=== PATIENT | male | born 1960 | race Caucasian/White ===

== ENCOUNTER 2019-05-02 17:05 | Emergency (ER) | payer MEDICARE, MEDICAID ==
[~2019-05-02] VITALS: Ht 182.9 cm; Wt 93.9 kg
--- NOTE | 2019-05-02 17:22 | NUR ---
BIBRA FROM HOME FOR ABD PAIN X 4 HRS. STATES PAIN IS SHARP AND 10/10. ALSO C/O RIGHT-SIDED BODY PAIN, INCLUDING ARM AND LEG. 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 AOX4, VSS, RR EVEN AND UNLABORED ON RA. NO ACUTE DISTRESS NOTED. READY FOR EVAL.
[2019-05-02] MEDS ORDERED: ONDANSETRON HCL/PF 4 MG/2 ML VIAL IVP ONE (17:30)
[2019-05-02] MEDS ORDERED: IV NS 0.9% 1,000 ML BAG IV ONE (17:30)
[2019-05-02] MEDS ORDERED: HYDROMORPHONE INJ 2 MG/ML DISP.SYRIN IV ONE (17:30)
[2019-05-02] MEDS ORDERED: HYDROMORPHONE 1 MG/1 ML DISP.SYRIN ONE (17:34)
[2019-05-02] MEDS ORDERED: ONDANSETRON HCL/PF 4 MG/2 ML VIAL ONE (17:34)
[2019-05-02 17:45] LABS: BASOPHILS % (AUTO) 0.5 % (0.0-2.0); EOSINOPHILS % (AUTO) 1.3 % (0.0-6.0); HEMATOCRIT 49 % (39-51); HEMOGLOBIN 16.4 g/dL (13.5-17.5); LYMPHOCYTES # (AUTO) 1.9 /CMM (0.8-4.8); LYMPHOCYTES % (AUTO) 34.9 % (20.0-44.0); MEAN CORPUSCULAR HGB CONC 34 g/dl (31.0-36.0); MEAN CORPUSCULAR VOLUME 94 fL (80-96); MONOCYTES % (AUTO) 17.2 % (2.0-12.0); NEUTROPHILS # (AUTO) 2.6 /CMM (1.8-8.9); NEUTROPHILS % (AUTO) 46.1 % (43.0-81.0); PLATELET COUNT (AUTO) 166 /CMM (150-450); RED BLOOD CELL COUNT(AUTO) 5.19 MIL/uL (4.5-6.0); WHITE BLOOD COUNT (AUTO) 5.6 K/uL (4.3-11.0)
[2019-05-02 17:58] LABS: CALCIUM, SERUM 8.8 mg/dL (8.5-10.1); POTASSIUM 4.5 mmol/L (3.5-5.1)
--- NOTE | 2019-05-02 18:00 | NUR ---
PT IS A HARD STICK, AND TUBE CARRIER NOTIFIED
[2019-05-02 18:04] LABS: ALBUMIN 3.9 g/dL (3.4-5.0); BILIRUBIN,TOTAL 0.3 mg/dL (0.2-1.0); TOTAL PROTEIN, SERUM 7.9 g/dL (6.4-8.2)
[2019-05-02] MEDS ORDERED: IOHEXOL-300 100 ML VIAL IV ONE (18:14)
[2019-05-02] MEDS ORDERED: CT SWABBABLE VALVE TRANS SET 1 EA INFUS.SET MC ONE (18:14)
--- NOTE | 2019-05-02 18:20 | NUR ---
IV ACCESS OBTAINED BY DUST OPERATOR
--- NOTE | 2019-05-02 20:21 | NUR ---
IV removed. Catheter intact and site benign. Pressure and 4x4 applied to site. No bleeding noted.Patient discharged to home in stable condition. Written and verbal after care instructions given. Patient verbalizes understanding of instruction. PT GIVEN TAXI VOUCHER AND ASSISTED TO LOBBY
[2019-05-02 20:29] VITALS: BP 115/75
== END 2019-05-02 20:15 | disposition home or self-care (01) ==
LOC: ER 17:31
DX: R10.84 Generalized abdominal pain (principal); E87.1 Hypo-osmolality and hyponatremia; H54.8 Legal blindness, as defined in USA; I10 Essential (primary) hypertension; Z85.01 Personal history of malignant neoplasm of esophagus; Z88.6 Allergy status to analgesic agent
CPT/HCPCS: 36415; 74177; 80048; 80076; 83690; 85025; 96375; 96374; 99284; J1170; J2405; J7030; Q9967

== ENCOUNTER 2022-09-20 00:45 | Inpatient (IN) | payer MEDICARE, OTHER ==
[~2022-09-20] VITALS: Ht 177.8 cm; Wt 91.7 kg
--- NOTE | 2022-09-20 00:50 | NUR ---
BIBS FOR C/O ABDOMINAL DISTENTION AND DIARRHEA X 4 DAYS. HAD HERNIA REPAIR LAST MONTH AT [facility]. PATIENT IS AAOX4, ABLE TO MAKE NEEDS KNOWN. VITALS CHECKED.
[2022-09-20] MEDS ORDERED: MORPHINE SULFATE INJ 2 MG/ML DISP.SYRIN IV ONE ×2 (01:00→06:00)
[2022-09-20] MEDS ORDERED: IV NS 0.9% 1,000 ML BAG IV ONE (01:00)
[2022-09-20] MEDS ORDERED: ONDANSETRON HCL/PF 4 MG/2 ML VIAL IV ONE (01:00)
[2022-09-20] MEDS ORDERED: MORPHINE SULFATE INJ 4 MG/ML DISP.SYRIN ONE ×2 (01:03→05:35)
[2022-09-20] MEDS ORDERED: ONDANSETRON HCL/PF 4 MG/2 ML VIAL ONE (01:03)
--- NOTE | 2022-09-20 01:16 | NUR ---
IV CANNULA G20 INSERTED ON LEFT AC. BLOOD DRAWN AND SENT TO LAB
[2022-09-20 01:51] LABS: BASOPHILS % (AUTO) 0.3 % (0.0-2.0); EOSINOPHILS % (AUTO) 1.1 % (0.0-6.0); HEMATOCRIT 51 % (39-51); HEMOGLOBIN 16.8 g/dL (13.5-17.5); LYMPHOCYTES % (AUTO) 36.4 % (20.0-44.0); MEAN CORPUSCULAR HGB CONC 33 g/dl (31.0-36.0); MEAN CORPUSCULAR VOLUME 89 fL (80-96); MONOCYTES % (AUTO) 12.6 % (2.0-12.0); NEUTROPHILS # (AUTO) 4.1 K/uL (1.8-8.9); NEUTROPHILS % (AUTO) 49.6 % (43.0-81.0); PLATELET COUNT (AUTO) 177 K/uL (150-450); RED BLOOD CELL COUNT(AUTO) 5.71 MIL/uL (4.5-6.0); WHITE BLOOD COUNT (AUTO) 8.2 K/uL (4.3-11.0)
--- NOTE | 2022-09-20 02:00 | NUR ---
BROUGHT PT TO CT DEPT
[2022-09-20 02:17] LABS: CREATININE 1.4 mg/dL (0.6-1.3)
--- NOTE | 2022-09-20 02:30 | NUR ---
IV CANNULA INFILTRATED. INSERTED G20 IV CATH TO RIGHT FA. IVF HOOKED. LINE IS PATENT.
--- NOTE | 2022-09-20 02:30 | NUR ---
Note hodan in EDM - 09/20/22 at 0523 by MARTY IV CANNULA INFILTRATED. INSERTED G20 INSERTED IV CATH TO RIGHT FA. IVF HOOKED. LINE IS PATENT.
[2022-09-20] MEDS ORDERED: PIPERACILLIN /TAZOBACTAM 3.375 G VIAL IV ONE (03:29)
[2022-09-20] MEDS ORDERED: VANCOMYCIN 1 GM in IV D5W 250 ML IV ONE (03:30)
[2022-09-20] MEDS ORDERED: PIPERACILLIN /TAZOBACTAM 3.375 G in IV D5W 50 ML IV ONE (03:30)
--- NOTE | 2022-09-20 03:43 | NUR ---
[facility] CALLED FOR TRANSFER REQUEST. FAC[employer]HEET AND CLINICALS FAXED.
[2022-09-20] MEDS ORDERED: VANCOMYCIN 1 GM VIAL ONE (04:02)
--- NOTE | 2022-09-20 04:05 | NUR ---
COVID SWAB DONE AND SENT TO LAB
--- NOTE | 2022-09-20 05:39 | NUR ---
PATIENT COMPLAINING OF ABDOMINAL PAIN SCALE OF 10/10. DR GUZMAN MADE AWARE WITH ORDERS TO BE CARRIED OUT
--- NOTE | 2022-09-20 06:34 | NUR ---
PLEASE FAX COVID RESULTS TO [facility] AT [phone] AND CALL THEM AT [phone]
--- NOTE | 2022-09-20 07:37 | NUR ---
PANEL ON-CALL PAGED
[2022-09-20] MEDS ORDERED: hydrALAZINE HCL 25 MG TABLET PO ONE (10:00)
[2022-09-20] MEDS ORDERED: KETOROLAC TROMETHAMINE 15 MG/ML VIAL ONE (10:30)
[2022-09-20] MEDS ORDERED: LISI10TA29 PO (10:45)
[2022-09-20] MEDS ORDERED: ROSU10TA2 PO (10:45)
[2022-09-20] MEDS ORDERED: CARV10CP7 PO (10:45)
[2022-09-20] MEDS ORDERED: ZOLP10TA2 PO (10:45)
[2022-09-20] MEDS ORDERED: HIV PO (10:45)
[2022-09-20] MEDS ORDERED: LORA-259 PO (10:45)
[2022-09-20] MEDS ORDERED: OXYC-128 PO (10:45)
[2022-09-20] MEDS ORDERED: HYDROCODONE/APAP 5/325MG TABLET ONE (11:00)
[2022-09-20] MEDS ORDERED: HYDROCODONE/APAP 5/325MG TABLET PO ONE (11:00)
--- NOTE | 2022-09-20 11:27 | NUR ---
report given to aly espinosa
[2022-09-20] MEDS ORDERED: ACETAMINOPHEN ES 500 MG TABLET PO ONE (12:00)
--- NOTE | 2022-09-20 12:00 | NUR ---
MS JALOUSIE INSTALLER NOTES RECEIVED PATIENT VIA GURNEY FROM ER AT 1200. PATIENT IS ALERT AND ORIENTED TIMES 4. NO PAIN NOTED. NO SOB NOTED,. NO DISTRESS NOTED. ABLE TO MAKE NEEDS KNOWN IN AMHARIC LANGUAGE. ALL THE BELONGINGS ACCOUNTED AND SIGNED FOR. OVERALL SKIN INTACT. PATIENT IS LEGALLY BLIND. IV ACCESS IN THE RAC G# 20 INTACT . VITAL SIGNS IN NORMAL RANGES. ALL SAFETY MEASURES IN PLACE. BED LOCKED IN THE LOWEST POSITION. CALL LIGHT AND TABLE IN EASY REACH. WILL CONTINUE TO MONITOR CLOSELY.
--- NOTE | 2022-09-20 12:18 | NUR ---
MOVED TO INPATIENT ROOM ASSIGNED SAFELY
[2022-09-20] MEDS ORDERED: oxyCODONE/APAP (5/325 MG) 1 UDTAB TABLET PO PRN (13:30)
[2022-09-20] MEDS ORDERED: ACETAMINOPHEN 325 MG TABLET PO PRN (13:30)
[2022-09-20] MEDS ORDERED: ONDANSETRON HCL/PF 4 MG/2 ML VIAL IVP PRN (13:30)
[2022-09-20] MEDS ORDERED: Z GUARD REMEDY 4 OZ OINT TP PRN (13:30)
[2022-09-20] MEDS ORDERED: IV LR 500 ML IV ONE (13:30)
[2022-09-20] MEDS ORDERED: CARI350T PO (13:52)
[2022-09-20] MEDS ORDERED: LOPERAMIDE HCL (2 MG CAP) 2 MG CAPSULE PO PRN (14:00)
[2022-09-20] MEDS ORDERED: DICYCLOMINE HCL INJ 20 MG/2 ML AMPUL IM PRN (15:00)
[2022-09-20] MEDS: MORPHINE SULFATE INJ 4 MG/ML DISP.SYRIN IV PRN ×2 (16:26→21:18)
[2022-09-20] MEDS: LORAZEPAM 1 MG TABLET PO SCH (16:48)
[2022-09-20] MEDS: LISINOPRIL (10MG) 10 MG TABLET PO SCH (16:49)
[2022-09-20] MEDS: CARVEDILOL 3.125 MG TABLET PO SCH (16:49)
--- NOTE | 2022-09-20 19:15 | NUR ---
MS RN OPENING NOTES RECEIVED PT IS A/O X4. ON RA, TOLERATING WELL, NO S/S OF ACUTE DISTRESS, NO PAIN NOTED. ABLE TO MAKE NEEDS. IV ACCESS IN THE LHAND G# 22 INTACT S/L. VITAL SIGNS IN NORMAL RANGES. SAFETY MEASURES MAINTAINED: BED LOCKED AND IN LOWEST POSITION, SIDE RAILS UP X 3. CALL LIGHT WITHIN REACH.WILL CONTINUE TO MONITOR FOR CARMENZA.
--- NOTE | 2022-09-20 19:42 | NUR ---
MS RN CLOSING NOTES PATIENT IS ALERT AND ORIENTED TIMES 4. NO PAIN NOTED. NO SOB NOTED,. NO DISTRESS NOTED. ABLE TO MAKE NEEDS KNOWN IN MALTESE LANGUAGE. ALL DUE MEDS GIVEN ORDERED. IV ACCESS IN THE LEFT HAND G# 22 INTACT . VITAL SIGNS IN NORMAL RANGES. ALL SAFETY MEASURES IN PLACE. BED LOCKED IN THE LOWEST POSITION. CALL LIGHT AND TABLE IN EASY REACH. WILL ENDORSE FOR CARMENZA.
[2022-09-20 20:48] VITALS: BP 108/60
[2022-09-20] MEDS ORDERED: ATORVASTATIN 10 MG TABLET PO SCH (22:00)
[2022-09-20] MEDS ORDERED: ZOLPIDEM TARTRATE 10 MG TABLET PO SCH (22:00)
--- NOTE | 2022-09-20 23:00 | NUR ---
MS RN NOTE RECEIVED PATIENT FROM AMANDA MONTERROSO DURING THE SHIFT. PATIENT IS SLEEPING IN BED. HE IS BLIND FOR BOTH EYES. INTRODUCED MYSELF TO THE PATIENT AND RE-ORIENTED THE PATIENT WITH THE POSITION OF THE CALL LIGHT; INSTRUCTED PATIENT TO RING THE CALL ZARCO WHEN HE NEEDS HELP. PATIENT VERBALIZED UNDERSTANDING. HE IS ON RA, NO S/S SOB OR DISTRESS. NO COMPLAIN OF PAIN. IV ACCESS IS ON HIS LEFT HAND, #22G, SL. FLUSHED WITH 10 CC OF NS. IV IS PATENT AND INTACT. SAFETY PRECAUTIONS ARE IN PLACE: BED IN LOW AND LOCKED POSITION; CALL ZARCO AND BED TABLE ARE IN REACH. BED ALARM IS ON. SIDE RAILS UP X 3. WILL CONTINUE MONITOR THE PATIENT AND PROVIDE THE CARE PATIENT NEEDS.
--- NOTE | 2022-09-20 23:15 | NUR ---
MS RN NOTE INSTRUCTED PATIENT TO CALL THE NURSES TO COLLECT HIS STOOL FOR STOOL CULTURE. PATIENT STATED AFTER TWO TIMES OF WATERY STOOL YESTERDAY, HE HASN'T BEEN HAVING ANY BOWEL MOVEMENT. HE VERBALIZED TO LET THE NURSE COLLECT HIS STOOL SAMPLE ONCE HE HAS BM.
[2022-09-21] MEDS: MORPHINE SULFATE INJ 4 MG/ML DISP.SYRIN IV PRN ×4 (01:42→14:09)
[2022-09-21 06:31] LABS: BASOPHILS % (AUTO) 0.1 % (0.0-2.0); EOSINOPHILS % (AUTO) 4.2 % (0.0-6.0); HEMATOCRIT 52 % (39-51); HEMOGLOBIN 16.8 g/dL (13.5-17.5); LYMPHOCYTES # (AUTO) 1.6 K/uL (0.8-4.8); LYMPHOCYTES % (AUTO) 25.2 % (20.0-44.0); MEAN CORPUSCULAR HGB CONC 32 g/dl (31.0-36.0); MEAN CORPUSCULAR VOLUME 89 fL (80-96); MONOCYTES # (AUTO) 0.6 K/uL (0.1-1.30); MONOCYTES % (AUTO) 8.5 % (2.0-12.0); PLATELET COUNT (AUTO) 144 K/uL (150-450); RED BLOOD CELL COUNT(AUTO) 5.88 MIL/uL (4.5-6.0); WHITE BLOOD COUNT (AUTO) 6.5 K/uL (4.3-11.0)
[2022-09-21 07:00] VITALS: BP 98/53
[2022-09-21 07:12] LABS: CARBON DIOXIDE 20 mmol/L (21-32); CHLORIDE 100 mmol/L (98-107); POTASSIUM 4.7 mmol/L (3.5-5.1); SODIUM SERUM 128 mmol/L (136-145)
--- NOTE | 2022-09-21 07:13 | NUR ---
MS RN CLOSING NOTE PATIENT IS SLEEPING IN BED. HE IS ON RA, NO S/S SOB OR DISTRESS. NO COMPLAIN OF PAIN CURRENTLY. IV ACCESS IS ON HIS LEFT HAND, #22G, SL. FLUSHED WITH 10 CC OF NS. IV IS PATENT AND INTACT. MEDICATIONS ARE GIVEN PER MD ORDERS THROUGHOUT THE SHIFT. SAFETY PRECAUTIONS ARE IN PLACE: BED IN LOW AND LOCKED POSITION; CALL ZARCO AND BED TABLE ARE IN REACH. BED ALARM IS ON. SIDE RAILS UP X 3. WILL ENDORSE NEXT SHIFT NURSE FOR CONTINUING CARE.
[2022-09-21 07:25] LABS: CHOLESTEROL 221 mg/dL (<200); HDL CHOLESTEROL 38 mg/dL (40-60); LDL 143 mg/dL (0-99); TRIGLYCERIDES 200 mg/dL (30-150)
--- NOTE | 2022-09-21 07:25 | NUR ---
MS RN OPENING NOTES RECEIVED PT IS A/O X4 VERBALLY RESPONSIVE . ON ROOM AIR , TOLERATING WELL, NO S/S OF ACUTE DISTRESS, NO PAIN NOTED. ABLE TO MAKE NEEDS. IV ACCESS IN THE L HAND G# 22 INTACT S/L. VITAL SIGNS IN NORMAL RANGES. SAFETY MEASURES MAINTAINED: BED LOCKED AND IN LOWEST POSITION, SIDE RAILS UP X 3. CALL LIGHT WITHIN REACH.WILL CONTINUE TO MONITOR
[2022-09-21] MEDS ORDERED: PANTOPRAZOLE 40 MG TABLET.DR PO SCH (07:30)
[2022-09-21 07:32] LABS: CALCIUM, SERUM 8.6 mg/dL (8.5-10.1); CREATININE 1.4 mg/dL (0.6-1.3); GLUCOSE 136 mg/dL (74-106); UREA NITROGEN, BLOOD 17 mg/dL (7-18)
[2022-09-21 07:45] LABS: MAGNESIUM 2.6 mg/dL (1.8-2.4); PHOSPHORUS 2.6 mg/dL (2.5-4.9)
[2022-09-21 08:05] LABS: ALANINE AMINOTRANSFERASE 21 U/L (12-78); ALKALINE PHOSPHATASE 64 U/L (46-116); ASPARTATE AMINOTRANSFERASE 24 U/L (15-37); BILIRUBIN,TOTAL 0.5 mg/dL (0.2-1.0); TOTAL PROTEIN, SERUM 7.6 g/dL (6.4-8.2)
[2022-09-21 08:11] LABS: ALBUMIN < 0.6 g/dL (3.4-5.0)
[2022-09-21] MEDS: LORAZEPAM 1 MG TABLET PO SCH ×3 (08:14→17:15)
[2022-09-21] MEDS: LISINOPRIL (10MG) 10 MG TABLET PO SCH ×2 (08:34→17:15)
[2022-09-21] MEDS: CARVEDILOL 3.125 MG TABLET PO SCH ×2 (08:34→17:15)
[2022-09-21] MEDS ORDERED: HIV PO SCH (09:00)
--- NOTE | 2022-09-21 10:30 | NUR ---
RN NOTES PATIENT C/O OF PAIN AND DISCOMFORT 06/08 AND MORPHINE GIVEN ORDERED .
[2022-09-21] MEDS ORDERED: GABA300C PO (11:38)
[2022-09-21] MEDS ORDERED: IBUP-1955 PO (11:38)
[2022-09-21 17:15] VITALS: BP 144/72
--- NOTE | 2022-09-21 17:45 | NUR ---
MS SUPERVISORY AIR INTERCEPT CONTROLLER NOTES PT IS A/O X4 VERBALLY RESPONSIVE . ON ROOM AIR , TOLERATING WELL, NO S/S OF ACUTE DISTRESS, C/O PAIN AND DISCOMFORT AND GIVEN WITH MORPHINE 4 MG ORDERED AND WITH HELP .ALL DUE MEDS GIVEN ORDERED . WITH ORDER FOR DISCHARGE TO HOME PATIENT IS MEDICALLY CLEARED BY MD , PATIENT DISCHARGE INSTRUCTIONS WAS PREPARED AND INSTRUCTIONS PROVIDED REGARDING MEDICATIONS , FOLLOW WITH PCP , AND WHEN TO CALL 911 IN CASE OF EMERGENCY , PATIENT ABLE TO UNDERSTAND INSTRUCTIONS PROVIDED , ALL BELONGINGS WERE ACCOUNTED FOR AND FORMED WAS SIGNED BY THE PATIENT , IV ACCESS WAS REMOVED AND APPLIED PRESSURE DRESSING AND TO REMOVE IF NO MORE BLEEDING , PATIENT LEFT AROUND 1730 VIA PRIVATE CAR WITH DAUGHTER BHAVNA , PATIENT LEFT WITH NO SOB OR DISTRESS, NO C/O OF PAIN AND DISCOMFORT , ACCOMPANIED TO THE LOBBY VIA WHEEL CHAIR AND PATIENT WITH THE DAUGHTER .
== END 2022-09-21 17:30 | disposition home or self-care (01) | DRG 920 ==
LOC: ER 00:46 → MED 11:42
PROVIDERS: ADMIT Nurse Practitioner Acute Care; ATTEND Nurse Practitioner Acute Care
DX: K91.872 Postprocedural seroma of a digestive system organ or structure following a digestive system procedure (principal); A04.9 Bacterial intestinal infection, unspecified; E87.1 Hypo-osmolality and hyponatremia; N17.9 Acute kidney failure, unspecified; Y83.8 Other surgical procedures as the cause of abnormal reaction of the patient, or of later complication, without mention of misadventure at the time of the procedure; Y73.8 Miscellaneous gastroenterology and urology devices associated with adverse incidents, not elsewhere classified; Y92.009 Unspecified place in unspecified non-institutional (private) residence as the place of occurrence of the external cause; Z79.899 Other long term (current) drug therapy; Z20.822 Contact with and (suspected) exposure to COVID-19; E78.5 Hyperlipidemia, unspecified; I10 Essential (primary) hypertension; Z85.01 Personal history of malignant neoplasm of esophagus; Z88.5 Allergy status to narcotic agent; H54.8 Legal blindness, as defined in USA; Z88.8 Allergy status to other drugs, medicaments and biological substances; Z98.890 Other specified postprocedural states; K74.00 Hepatic fibrosis, unspecified; F41.9 Anxiety disorder, unspecified; I25.10 Atherosclerotic heart disease of native coronary artery without angina pectoris; I25.2 Old myocardial infarction; Z80.42 Family history of malignant neoplasm of prostate; Z83.3 Family history of diabetes mellitus; Z80.0 Family history of malignant neoplasm of digestive organs
CPT/HCPCS: 36415; 80048-TC; 80053-TC; 80061-TC; 82040-TC; 83735-TC; 84100-TC; 85025-TC; 87081-TC; C9803; G0378; J0500; J1885; J2270; J2405; J2543; J3370; J7030; J7060; J7120

== ENCOUNTER 2022-09-23 01:57 | Emergency (ER) | payer MEDICARE, OTHER ==
[~2022-09-23] VITALS: Ht 177.8 cm; Wt 90.7 kg
[~2022-09-23 01:57] MED LIST: CARV10CP7 PO; GABA300C PO; HIV PO; IBUP-1955 PO; LISI10TA29 PO; LORA-259 PO; OXYC-128 PO; ROSU10TA2 PO; ZOLP10TA2 PO
--- NOTE | 2022-09-23 02:09 | NUR ---
bibs. gen body redness & itching starte yesterday. pt allergic to morphine received morphine yesterday. Tolerating R/a at 98%. Connected Pt to pox and monitor. safety measures in place.
[2022-09-23] MEDS ORDERED: diphenhydrAMINE HCL 50 MG/ML VIAL ONE ×2 (02:19→03:15)
[2022-09-23] MEDS ORDERED: DEXAMETHASONE SOD PHOSPHATE 10 MG/ML VIAL ONE (02:19)
[2022-09-23] MEDS ORDERED: FAMOTIDINE (20 MG) 20 MG TABLET ONE (02:19)
[2022-09-23] MEDS ORDERED: diphenhydrAMINE HCL 50 MG/ML VIAL IM ONE (02:30)
[2022-09-23] MEDS ORDERED: FAMOTIDINE (20 MG) 20 MG TABLET PO ONE (02:30)
[2022-09-23] MEDS ORDERED: DEXAMETHASONE SOD PHOSPHATE 4 MG/ML VIAL IM ONE (02:30)
[2022-09-23] MEDS ORDERED: diphenhydrAMINE HCL 50 MG/ML VIAL IV ONE (03:30)
[2022-09-23] MEDS ORDERED: IV NS 0.9% 1,000 ML BAG IV ONE (03:30)
[2022-09-23] MEDS ORDERED: ACETAMINOPHEN ES 500 MG TABLET ONE (03:56)
[2022-09-23] MEDS ORDERED: ACETAMINOPHEN 325 MG TABLET PO ONE (04:00)
--- NOTE | 2022-09-23 04:55 | NUR ---
Patient discharged to home in stable condition. Written and verbal after care instructions given. Patient verbalizes understanding of instruction. IV removed. Catheter intact and site benign. Pressure and 4x4 applied to site. No bleeding noted.
[2022-09-23 05:00] VITALS: BP 107/68
== END 2022-09-23 05:00 | disposition home or self-care (01) ==
LOC: ER 02:02
DX: L29.9 Pruritus, unspecified (principal); T40.2X5A Adverse effect of other opioids, initial encounter; I10 Essential (primary) hypertension; E78.5 Hyperlipidemia, unspecified; Z88.8 Allergy status to other drugs, medicaments and biological substances; Z79.899 Other long term (current) drug therapy; Y92.89 Other specified places as the place of occurrence of the external cause
CPT/HCPCS: 99284; 96374; 96361; 93005; 96372 ×2; J1100; J1200 ×2; J7030

== ENCOUNTER 2022-09-25 10:34 | Emergency (ER) | payer MEDICARE, OTHER ==
[~2022-09-25] VITALS: Ht 177.8 cm; Wt 90.7 kg
--- NOTE | 2022-09-25 11:00 | NUR ---
BIBS C/O GENERALIZED ITCHING/RASH SINCE HE WAS GIVEN MORPHINE 2 DAYS AGO. PLACED ON BED, BREATHING EVEN AND UNLABORED SATURATING AT 98%RA.
[2022-09-25] MEDS ORDERED: diphenhydrAMINE HCL 50 MG/ML VIAL IV ONE (11:30)
[2022-09-25] MEDS ORDERED: methylPREDNISolone SOD SUCC 125 MG/2ML VIAL IV ONE (11:30)
[2022-09-25] MEDS ORDERED: FAMOTIDINE/PF INJ 20 MG/2 ML VIAL IV ONE ×2 (11:30→11:44)
[2022-09-25] MEDS ORDERED: IV NS 0.9% 1,000 ML IV ONE (11:30)
[2022-09-25] MEDS ORDERED: diphenhydrAMINE HCL 50 MG/ML VIAL ONE (11:44)
[2022-09-25] MEDS ORDERED: methylPREDNISolone SOD SUCC 125 MG/2ML VIAL ONE (11:44)
--- NOTE | 2022-09-25 11:45 | NUR ---
BLOOD DRAWN AND SENT TO LAB
[2022-09-25 11:54] LABS: BASOPHILS % (AUTO) 0.3 % (0.0-2.0); EOSINOPHILS % (AUTO) 9.9 % (0.0-6.0); HEMATOCRIT 53 % (39-51); HEMOGLOBIN 17.3 g/dL (13.5-17.5); LYMPHOCYTES # (AUTO) 1.4 K/uL (0.8-4.8); LYMPHOCYTES % (AUTO) 21.2 % (20.0-44.0); MEAN CORPUSCULAR HGB CONC 33 g/dl (31.0-36.0); MEAN CORPUSCULAR VOLUME 88 fL (80-96); MONOCYTES # (AUTO) 0.7 K/uL (0.1-1.30); MONOCYTES % (AUTO) 10.9 % (2.0-12.0); NEUTROPHILS # (AUTO) 3.9 K/uL (1.8-8.9); NEUTROPHILS % (AUTO) 57.7 % (43.0-81.0); PLATELET COUNT (AUTO) 196 K/uL (150-450); RED BLOOD CELL COUNT(AUTO) 5.96 MIL/uL (4.5-6.0); WHITE BLOOD COUNT (AUTO) 6.7 K/uL (4.3-11.0)
[2022-09-25 12:07] LABS: BILIRUBIN,DIRECT 0.1 mg/dL (0.0-0.2); BILIRUBIN,TOTAL 0.4 mg/dL (0.2-1.0); CREATININE 1.6 mg/dL (0.6-1.3); POTASSIUM 4.5 mmol/L (3.5-5.1); TOTAL PROTEIN, SERUM 7.3 g/dL (6.4-8.2)
--- NOTE | 2022-09-25 12:10 | NUR ---
[facility] [phone]
[2022-09-25] MEDS ORDERED: PRED50TA PO (13:13)
[2022-09-25] MEDS ORDERED: FAMO40TA7 PO (13:13)
[2022-09-25] MEDS ORDERED: DIPH50CA4 PO (13:13)
--- NOTE | 2022-09-25 13:45 | NUR ---
IV removed. Catheter intact and site benign. Pressure and 4x4 applied to site. No bleeding noted.Patient discharged to home in stable condition. Written and verbal after care instructions given. Patient verbalizes understanding of instruction.
[2022-09-25 13:46] VITALS: BP 120/75
== END 2022-09-25 13:45 | disposition home or self-care (01) ==
LOC: ER 10:37
DX: L25.8 Unspecified contact dermatitis due to other agents (principal); T40.2X5A Adverse effect of other opioids, initial encounter; I10 Essential (primary) hypertension; E78.5 Hyperlipidemia, unspecified; Z88.8 Allergy status to other drugs, medicaments and biological substances; Z79.899 Other long term (current) drug therapy; Y92.89 Other specified places as the place of occurrence of the external cause
CPT/HCPCS: 99284; 96374; 96375; 96361; 85025; 80048; 80076; 36415; J1200; J3490; J2930; J7030

== ENCOUNTER 2022-10-08 19:29 | Emergency (ER) | payer MEDICARE, OTHER ==
[~2022-10-08] VITALS: Ht 170.2 cm; Wt 77.1 kg
[~2022-10-08 19:29] MED LIST changes: +DIPH50CA4 PO; +FAMO40TA7 PO; +PRED50TA PO
[2022-10-08 20:28] VITALS: BP 159/97
[2022-10-08] MEDS ORDERED: IV NS 0.9% 1,000 ML IV ONE (21:30)
[2022-10-08] MEDS ORDERED: MORPHINE SULFATE INJ 2 MG/ML DISP.SYRIN IV ONE (21:30)
--- NOTE | 2022-10-08 21:31 | NUR ---
IV LINE ESTABLISHED, RAC20G
--- NOTE | 2022-10-08 21:31 | NUR ---
BLOOD COLLECTED AND SENT TO LAB
--- NOTE | 2022-10-08 21:32 | NUR ---
XRAY AT BEDSIDE
--- NOTE | 2022-10-08 21:32 | NUR ---
PT UNABLE TO PROVIDE URINE AT THIS TIME
[2022-10-08] MEDS ORDERED: MORPHINE SULFATE INJ 4 MG/ML DISP.SYRIN ONE (21:34)
[2022-10-08 21:51] LABS: BASOPHILS # (AUTO) 0.1 K/uL (0.0-0.2); BASOPHILS % (AUTO) 0.8 % (0.0-2.0); HEMATOCRIT 51 % (39-51); HEMOGLOBIN 16.7 g/dL (13.5-17.5); LYMPHOCYTES # (AUTO) 3.1 K/uL (0.8-4.8); LYMPHOCYTES % (AUTO) 35.9 % (20.0-44.0); MEAN CORPUSCULAR HGB CONC 33 g/dl (31.0-36.0); MEAN CORPUSCULAR VOLUME 87 fL (80-96); MONOCYTES # (AUTO) 0.8 K/uL (0.1-1.30); MONOCYTES % (AUTO) 8.9 % (2.0-12.0); NEUTROPHILS # (AUTO) 4.6 K/uL (1.8-8.9); NEUTROPHILS % (AUTO) 53.4 % (43.0-81.0); PLATELET COUNT (AUTO) 181 K/uL (150-450); RED BLOOD CELL COUNT(AUTO) 5.83 MIL/uL (4.5-6.0); WHITE BLOOD COUNT (AUTO) 8.6 K/uL (4.3-11.0)
[2022-10-08 23:30] LABS: ALBUMIN 4.1 g/dL (3.4-5.0); BILIRUBIN,TOTAL 0.6 mg/dL (0.2-1.0); CALCIUM, SERUM 8.5 mg/dL (8.5-10.1); CREATININE 1.5 mg/dL (0.6-1.3); POTASSIUM 4.6 mmol/L (3.5-5.1); TOTAL PROTEIN, SERUM 7.9 g/dL (6.4-8.2)
[2022-10-08 23:47] LABS: BILIRUBIN,URINE NEGATIVE (NEGATIVE); LEUKOCYTE ESTERASE ,URINE NEGATIVE (NEGATIVE); NITRITE, URINE NEGATIVE (NEGATIVE); PROTEIN,URINE 1+ mg/dl (NEGATIVE); UGLUCOSE NEGATIVE (NEGATIVE); UROBILINOGEN,URINE 0.2 EU/dL (0.2)
[2022-10-09] MEDS ORDERED: DIAZEPAM 5 MG TABLET PO ONE
[2022-10-09 00:16] LABS: COLOR,URINE LIGHT YELLOW (YELLOW)
[2022-10-09 01:08] LABS: BACTERIA,URINE Rare /HPF (None Seen)
[2022-10-09 01:11] LABS: RBC,URINE 0-2 /HPF (0-2); SQUAMOUS EPITHELIAL CELL,UR Rare /HPF (None Seen)
[2022-10-09] MEDS ORDERED: DIAZEPAM 5 MG TABLET ONE (01:47)
--- NOTE | 2022-10-09 01:53 | NUR ---
Patient discharged to home in stable condition. Written and verbal after care instructions given. Patient verbalizes understanding of instruction.
== END 2022-10-09 01:57 | disposition home or self-care (01) ==
LOC: ER 19:32
DX: R07.89 Other chest pain (principal); M54.50 Low back pain, unspecified; E86.0 Dehydration; I10 Essential (primary) hypertension; E78.5 Hyperlipidemia, unspecified; Z88.8 Allergy status to other drugs, medicaments and biological substances; Z79.899 Other long term (current) drug therapy
CPT/HCPCS: 99285; 96374; 71045; 96361; 93005; 85025; 83690; 81001; 36415; 80053; 84484 ×2; J2270; J7030

== ENCOUNTER 2023-01-07 08:49 | Emergency (ER) | payer MEDICARE, OTHER ==
[~2023-01-07] VITALS: Ht 177.8 cm; Wt 95.3 kg
[2023-01-07] MEDS ORDERED: ACETAMINOPHEN ES 500 MG TABLET ONE ×2 (09:49→10:05)
[2023-01-07] MEDS ORDERED: ACETAMINOPHEN ES 500 MG TABLET PO ONE (10:00)
--- NOTE | 2023-01-07 10:03 | NUR ---
PLACED IV ACCESS ON L AC #20 G. BLOOD SPECIMEN COLLECTED, SENT TO LAB
[2023-01-07 10:16] LABS: BASOPHILS % (AUTO) 0.5 % (0.0-2.0); EOSINOPHILS % (AUTO) 0.4 % (0.0-6.0); HEMATOCRIT 45 % (39-51); LYMPHOCYTES # (AUTO) 1.4 K/uL (0.8-4.8); LYMPHOCYTES % (AUTO) 25.1 % (20.0-44.0); MEAN CORPUSCULAR HGB CONC 33 g/dl (31.0-36.0); MEAN CORPUSCULAR VOLUME 95 fL (80-96); MONOCYTES # (AUTO) 0.5 K/uL (0.1-1.30); MONOCYTES % (AUTO) 8.8 % (2.0-12.0); NEUTROPHILS # (AUTO) 3.6 K/uL (1.8-8.9); NEUTROPHILS % (AUTO) 65.2 % (43.0-81.0); PLATELET COUNT (AUTO) 200 K/uL (150-450); RED BLOOD CELL COUNT(AUTO) 4.73 MIL/uL (4.5-6.0); WHITE BLOOD COUNT (AUTO) 5.6 K/uL (4.3-11.0)
[2023-01-07] MEDS ORDERED: diphenhydrAMINE HCL 50 MG/ML VIAL IV ONE (12:30)
[2023-01-07] MEDS ORDERED: METOCLOPRAMIDE HCL 10 MG/2 ML VIAL IV ONE (12:30)
[2023-01-07] MEDS ORDERED: METOCLOPRAMIDE HCL 10 MG/2 ML VIAL ONE (12:32)
[2023-01-07] MEDS ORDERED: diphenhydrAMINE HCL 50 MG/ML VIAL ONE (12:32)
[2023-01-07] MEDS ORDERED: oxyCODONE/APAP (5/325 MG) 1 UDTAB TABLET PO ONE (13:00)
[2023-01-07] MEDS ORDERED: oxyCODONE/APAP (5/325 MG) 1 UDTAB TABLET ONE (13:02)
[2023-01-07 13:08] LABS: CALCIUM, SERUM 8.5 mg/dL (8.5-10.1); CARBON DIOXIDE 20 mmol/L (21-32); CHLORIDE 97 mmol/L (98-107); CREATININE 1.3 mg/dL (0.6-1.3); GLUCOSE 133 mg/dL (74-106); POTASSIUM 3.4 mmol/L (3.5-5.1); SODIUM SERUM 129 mmol/L (136-145); UREA NITROGEN, BLOOD 4 mg/dL (7-18)
[2023-01-07 13:21] LABS: ALANINE AMINOTRANSFERASE 23 U/L (12-78); ALBUMIN 3.9 g/dL (3.4-5.0); ALKALINE PHOSPHATASE 71 U/L (46-116); ASPARTATE AMINOTRANSFERASE 21 U/L (15-37); BILIRUBIN,DIRECT 0.1 mg/dL (0.0-0.2); BILIRUBIN,TOTAL 0.3 mg/dL (0.2-1.0); TOTAL PROTEIN, SERUM 7.5 g/dL (6.4-8.2)
[2023-01-07 14:27] VITALS: BP 125/75
--- NOTE | 2023-01-07 14:28 | NUR ---
Patient discharged to home in stable condition. Written and verbal after care instructions given. Patient verbalizes understanding of instruction.
[2023-01-07] MEDS ORDERED: LOPE-195 PO (20:19)
[2023-01-07] MEDS ORDERED: HYDR-4209 PO (20:19)
== END 2023-01-07 14:28 | disposition home or self-care (01) ==
LOC: ER 08:54
DX: R51.9 Headache, unspecified (principal); I10 Essential (primary) hypertension; E78.5 Hyperlipidemia, unspecified; Z88.8 Allergy status to other drugs, medicaments and biological substances; Z79.899 Other long term (current) drug therapy
CPT/HCPCS: 99285; 96374; 70450; 71045; 96375; 93005; 85025; 80048; 80076; 36415; 84484; 83880; J1200; J2765

== ENCOUNTER 2023-01-07 20:05 | Emergency (ER) | payer MEDICARE, OTHER ==
[~2023-01-07] VITALS: Ht 177.8 cm; Wt 95.3 kg
[2023-01-07 20:09] VITALS: BP 154/90
--- NOTE | 2023-01-07 20:09 | NUR ---
[id number] FROM HOME C/O LANE -N/V. PT SEEN TODAY BY ER PHYSICIAN FOR H/A. PT A/OX4. TOLERATING R/A WELL WITH NO RESP DISTRESS.
[2023-01-07] MEDS ORDERED: LOPE-195 PO (20:19)
[2023-01-07] MEDS ORDERED: HYDR-4209 PO (20:19)
--- NOTE | 2023-01-07 20:19 | NUR ---
DR. DAMARI GREEN AT PT'S BEDSIDE
== END 2023-01-07 20:39 | disposition home or self-care (01) ==
LOC: ER 20:14
DX: R51.9 Headache, unspecified (principal); R19.7 Diarrhea, unspecified; I10 Essential (primary) hypertension; E78.5 Hyperlipidemia, unspecified; Z88.8 Allergy status to other drugs, medicaments and biological substances; Z79.899 Other long term (current) drug therapy